=== PATIENT | male | born 1985 | race African-American/Black ===

== ENCOUNTER 2017-03-22 18:30 | Emergency (ER) | payer SELFPAY ==
[~2017-03-22] VITALS: Ht 195.6 cm; Wt 110.0 kg
[2017-03-22 18:35] VITALS: BP 141/100; PULSE 111; RESP 16; TEMP 98.4; O2SAT 99
[2017-03-22] MEDS ORDERED: TETANUS/DIPHTHERIA TOXOID ADULT 0.5 ML VIAL IM ONE (18:45)
[2017-03-22] MEDS ORDERED: BUPIVACAINE HCL PF 0.5% 10 ML VIAL INFIL ONE (18:45)
[2017-03-22] MEDS ORDERED: LIDOCAINE HCL 1% 50 ML VIAL INFIL ONE (18:45)
--- NOTE | 2017-03-22 18:45 | PD ---
HPI Chief Complaint: Laceration/Skin Injury Time Seen by Provider: 18:42 Travel History International Travel<30 days: No Contact w/Intl Traveler<30days: No Traveled to known affect area: No History of Present Illness HPI 32-year-old male presents emergency Department with complaint of right hand fifth finger laceration to the palmar aspect that occurred today from a knife while cutting meat. Unknown tetanus status. Says he can't bend his finger. His not taking any medications to alleviate his symptoms. Has applied pressure and a bandage to control bleeding. Rates pain 7/10. Describes it as throbbing. No known relieving or aggravating factors. No known allergies. No primary care provider. Has no other medical complaints. No other modifying factors or associated signs and symptoms. PFSH Social History Tobacco Use: No Allergies-Medications (Allergen,Severity, Reaction): Coded Allergies: No Known Allergies (Unverified , 03/22/17) Reported Meds & Prescriptions Reported Meds & Active Scripts Active [place] (Hydrocodone-Acetaminophen) 5 Mg-325 Mg Tab 1 Tab PO Q6H PRN Ibuprofen 800 Mg Tab 800 Mg PO Q8H PRN Keflex (Cephalexin) 500 Mg Cap 500 Mg PO Q6H 5 Days Review of Systems Except as stated in HPI: all other systems reviewed are Neg Physical Exam Narrative GENERAL: Well-nourished, well-developed black male patient, in no acute distress SKIN: Warm and dry. Palmar aspect of right fifth finger with approximately 1.5 cm laceration just over the PIP joint; patient is unable to flex the finger and there is no opposition; sensory intact. HEAD: Atraumatic. Normocephalic. EYES: Pupils equal and round. No scleral icterus. No injection or drainage. ENT: Mucosa pink and moist. Airway patent. NECK: Trachea midline. CARDIOVASCULAR: Regular rate. RESPIRATORY: No accessory muscle use. GASTROINTESTINAL: Flat. MUSCULOSKELETAL: No obvious deformities. No clubbing. No cyanosis. No edema. NEUROLOGICAL: Awake and alert. Oriented 3. No obvious cranial nerve deficits. Motor grossly within normal limits. Normal speech. PSYCHIATRIC: Appropriate mood and affect; insight and judgment normal. Data Data Last Documented VS Vital Signs Date Time Temp Pulse Resp B/P (MAP) Pulse Ox O2 Delivery O2 Flow Rate FiO2 03/22/17 19:05 20 03/22/17 18:35 98.4 111 141/100 (114) 99 Room Air Orders Orders Tetanus/Diphtheria Tox Adult (Tetanus/Di (03/22/17 18:45) Bupivacaine Pf 0.5% Inj (Marcaine Pf 0.5 (03/22/17 18:45) Lidocaine 1% Inj (50 Ml) (Xylocaine 1% I (03/22/17 18:45) Finger ([id number]) (03/22/17 ) Mandatory Outpatient Referral (03/22/17 19:04) Lidocaine 1% Inj (Xylocaine 1% Inj) (03/22/17 19:15) Splint Or Brace Apply/Monitor (03/22/17 19:10) Ed Discharge Order (03/22/17 19:34) Fiberglass Splint Forearm Adul (03/22/17 ) MDM Medical Decision Making Medical Screen Exam Complete: Yes Emergency Medical Condition: Yes Medical Record Reviewed: Yes Differential Diagnosis Laceration, contusion, abrasion Narrative Course 32-year-old male with right fifth finger laceration. Tetanus ordered. 1900: Adeline alcaraz DNP assumed patient care at this time. See her note for final patient disposition and laceration repair. Scripts Hydrocodone-Acetaminophen ([place]) 5 Mg-325 Mg Tab 1 TAB PO Q6H Y for PAIN GREATER THAN 6, #12 TAB 0 Refills Prov: Adeline Hawkins 03/22/17 Ibuprofen (Ibuprofen) 800 Mg Tab 800 MG PO Q8H Y for Pain/Inflammation, #30 TAB 0 Refills Prov: Adeline Hawkins 03/22/17 Cephalexin (Keflex) 500 Mg Cap 500 MG PO Q6H for Infection for 5 Days, #20 CAP 0 Refills Prov: Adeline Hawkins 03/22/17 Keke Bah Mar 22, 2017 18:45
[2017-03-22] MEDS ORDERED: LIDOCAINE HCL 1% 20 ML VIAL INFIL ONE (19:15)
--- NOTE | 2017-03-22 19:21 | RADRPT ---
EXAM DATE/TIME: 03/22/2017 19:04 [facility] COMPARISON: No previous studies available for comparison. INDICATIONS : Laceration to fifth digit. MEDICAL HISTORY : None. SURGICAL HISTORY : None. ENCOUNTER: Initial ACUITY: 1 day PAIN SCORE: 5/10 LOCATION: Right upper extremity hand FINDINGS: Examination of the fifth digit of the right hand demonstrates no evidence of fracture or dislocation. No radiopaque foreign bodies are seen. The soft tissues are intact. CONCLUSION: Intact right little finger. No radiopaque foreign body. Clinton Bird MD on March 22, 2017 at 19:18 Board Certified Radiologist. This report was verified electronically.
[2017-03-22] MEDS ORDERED: IBUP1TAB7 PO (19:41)
[2017-03-22] MEDS ORDERED: CEPH-460 PO (19:41)
[2017-03-22] MEDS ORDERED: NORC5TAB PO (19:41)
--- NOTE | 2017-03-22 19:42 | PD ---
Physical Exam Time Seen by Provider: 19:35 Narrative Please refer to previous providers documentation for details surrounding the patient's current visit. Data Data Last Documented VS Vital Signs Date Time Temp Pulse Resp B/P (MAP) Pulse Ox O2 Delivery O2 Flow Rate FiO2 03/22/17 19:05 20 03/22/17 18:35 98.4 111 141/100 (114) 99 Room Air Orders Orders Tetanus/Diphtheria Tox Adult (Tetanus/Di (03/22/17 18:45) Bupivacaine Pf 0.5% Inj (Marcaine Pf 0.5 (03/22/17 18:45) Lidocaine 1% Inj (50 Ml) (Xylocaine 1% I (03/22/17 18:45) Finger ([id number]) (03/22/17 ) Mandatory Outpatient Referral (03/22/17 19:04) Lidocaine 1% Inj (Xylocaine 1% Inj) (03/22/17 19:15) Splint Or Brace Apply/Monitor (03/22/17 19:10) Ed Discharge Order (03/22/17 19:34) [facility] Medical Record Reviewed: Yes Supervised Visit with RAFAEL: No Narrative Course Patient is signed out to me with laceration to the lower aspect of the right fifth digit just proximal to the PIP. Patient is unable to flex the digit. X- ray confirms no bony involvement and no foreign body. I spoke with Dr. Muñiz, hand surgeon rn utilization management um. Laceration will be approximated and patient will be placed in a splint. Patient is instructed on care. A mandatory referral has been placed. He agrees to return immediately with any acute worsening of symptoms. Procedures Procedure Narrative LACERATION LOCATION: right 5th digit LENGTH:2 cm NUMBER OF STITCHES/ROSALINDA: 5 sutures REPAIR: The area of the laceration was prepped with Betadine and sterilely draped. The laceration was infiltrated with 1% lidocaine without epinephrine. The wound was copiously irrigated and explored without evidence of foreign body , tendon injury or neurovascular injury. The wound was closed using 4-0 Prolene suture. This was a single layer repair. A sterile dressing was applied. The patient was advised to keep the dressing clean and dry. Patient tolerated the procedure well. Diagnosis Primary Impression: Finger laceration involving tendon Qualified Codes: S61.219A - Laceration without foreign body of unspecified finger without damage to nail, initial encounter; S66.929A - Laceration of unspecified muscle, fascia and tendon at wrist and hand level, unspecified hand , initial encounter Referrals: Anthony Muñiz III, MD Primary Care Physician Patient Instructions: Finger Laceration (ED), General Instructions, Tendon Laceration (ED) Departure Forms: Tests/Procedures, Work Release Special Instructions: Patient is unable to utilize right hand until cleared by hand surgeon Additional Instruction: Do not remove your splint Do not get wet Elevate to reduce pain and swelling Follow-up with Dr. Muñiz-a mandatory referral has been placed. If you are not contacted by the end of this week please contact our ER @ [phone] and ask for the individual in charge of mandatory referrals Return immediately to [facility] department with any acute worsening symptoms Med/Other Pt SpecificInfo: Prescription(s) given Scripts Hydrocodone-Acetaminophen ([place]) 5 Mg-325 Mg Tab 1 TAB PO Q6H Y for PAIN GREATER THAN 6, #12 TAB 0 Refills Prov: Adeline Hawkins 03/22/17 Ibuprofen (Ibuprofen) 800 Mg Tab 800 MG PO Q8H Y for Pain/Inflammation, #30 TAB 0 Refills Prov: Adeline Hawkins 03/22/17 Cephalexin (Keflex) 500 Mg Cap 500 MG PO Q6H for Infection for 5 Days, #20 CAP 0 Refills Prov: Adeline Hawkins 03/22/17 Disposition: 01 DISCHARGE HOME Condition: Stable Adeline Hawkins Mar 22, 2017 19:42
== END 2017-03-22 20:05 | disposition home or self-care (01) ==
LOC: NEPD 18:30
DX: S61.216A Laceration without foreign body of right little finger without damage to nail, initial encounter (principal); W26.0XXA Contact with knife, initial encounter; Y93.G1 Activity, food preparation and clean up; Z23 Encounter for immunization
CPT/HCPCS: 12001; 73140; 90471; 90714

== ENCOUNTER → 2017-04-03 | Day surgery (SDC) | payer SELFPAY ==
[~2017-04-03] MED LIST: ACETAMINOPHEN 1000 MG/100 ML 100 ML IV ONE; BUPIVACAINE HCL PF 0.5% 10 ML VIAL ONE; CEPH-460 PO; CHLORHEXIDINE GLUCONATE 2 % 1 PACK (2 CLOTHS) TOPICAL PRN; IBUP1TAB7 PO; LACTATED RINGER'S 1000 ML IV PRN; METOPROLOL TARTRATE 25 MG TAB PO PRN; NEOMYCIN/POLYMYXIN 1 ML G.U. IRRIGANT ONE; NORC5TAB PO; POVIDONE IODINE 5% (ANTISEPSIS KIT) 4 APPLICATIONS EACH NARE PRN; SODIUM CHLORID 0.9% 500 ML IV PRN; ceFAZolin 2 GM PREMIX 50 ML IV SCH
[2017-04-03 11:08] VITALS: BP 143/95; PULSE 80; RESP 16; TEMP 98.6; O2SAT 98
== END | disposition home or self-care (01) ==
LOC: PHSDC 10:28
PROVIDERS: ATTEND Orthopaedic Surgery Hand Surgery
DX: S66.821A Laceration of other specified muscles, fascia and tendons at wrist and hand level, right hand, initial encounter (principal); Z53.9 Procedure and treatment not carried out, unspecified reason
CPT/HCPCS: 99211; J0131; G0463

== ENCOUNTER → 2017-04-09 | Day surgery (SDC) | payer SELFPAY ==
[~2017-04-09] VITALS: Ht 195.6 cm; Wt 109.0 kg
[~2017-04-09] MED LIST changes: -ACETAMINOPHEN 1000 MG/100 ML 100 ML IV ONE; -BUPIVACAINE HCL PF 0.5% 10 ML VIAL ONE; +BUPIVACAINE HCL PF 0.5% 30 ML VIAL ONE; +HYDR-3288 PO; +HYDROmorphone HCL PF 2 MG/ML VIAL ONE; -IBUP1TAB7 PO; +LACTATED RINGER'S 1000 ML INJ 1,000 ML ONE; +LIDOCAINE HCL 2% 50 ML VIAL ONE; +MIDAZOLAM HCL 2 MG/2 ML VIAL ONE; +MORPHINE SULFATE 4 MG/ML INJ ONE; +ceFAZolin 2 GM PREMIX 50 ML ONE
[2017-04-09 12:55] VITALS: TEMP 98
[2017-04-09 13:40] VITALS: BP 157/93; PULSE 81; RESP 16; O2SAT 100
--- NOTE | 2017-04-10 08:10 | MP ---
cc: ANTHONY MUÑIZ III, M.D. DATE OF OPERATION 04/09/2017 PREOPERATIVE DIAGNOSIS Right fifth finger laceration with flexor tendon and digital nerve injury. PROCEDURE 1. Right fifth finger exploration. 2. Right fifth flexor digitorum profundus repair, delayed. 3. Right fifth finger ulnar digital nerve repair. SURGEON Anthony Muñiz III, MD PROCEDURE The patient was brought to the operating room and placed supine on the operating table. After the correct site and side of surgery were verified by members of each team in the room multiple times including the patient and myself and after adequate preoperative markings and preoperative written consent was verified by everyone, and after adequate preoperative time-out and general anesthesia had been achieved the right upper extremity was prepped and draped in the traditional sterile surgical fashion. The existing sutures were removed. A 50/50 mixture of 2% plain lidocaine and 0.5% plain Marcaine was infiltrated in the skin and subcutaneous tissues. At the base of the fifth finger in the end palm, the wound was exsanguinated with an Kyle wrap, highly placed, well-padded axillary tourniquet inflated to 200 mmHg for proximally the 83 minutes. Mid-axial incisions ulnarly incorporating the existing laceration were made. Flaps were elevated. The flexor sheath was identified and was found to have been violated and there were no flexor tendons visible. Exploration revealed a 1.5 cm stump of FDP attached distally. Exploration down to the A1 chris revealed healing and scarred FDP tendon. The proximal and distal ends of the ulnar digital nerve were identified and cleaned for later repair. The A2 chris was intact. The A4 chris was scarred and the FDP tendon was then repaired using 3-0 Prolene sutures on double-ended tapered needles in end-to-end fashion. It was reinforced for total of 4 to 6 core strand repair using the 3-0 Prolene as there is little room left in the tendon. The A4 chris was repaired and reinforced with local tissues using interrupted 3-0 Vicryl sutures. The FDP tendon repair took a lot of extra time, dissection and was in no man's land, increasing the level of complexity significantly. The ulnar digital nerve was then repaired in an end-to-end fashion using multiple interrupted 8-0 nylon sutures in the perineural tissue. There were no other anatomic abnormalities identified. The ulnar digital artery was injured in the initial injury and was all atrophied and retracted. The axillary tourniquet was released. The hand and all fingers including the small finger became immediately soft, pink and warm and had brisk capillary refill of less 2 seconds. The skin edges were then reapproximated using multiple interrupted and running 4-0 chromic sutures. Additional local anesthetic was injected proximally for postoperative pain relief. The hand and arm were thoroughly cleansed and dried. Betadine and Adaptic dressings were applied atop of the wound, followed by a bulky, well-padded, well molded dorsal blocking splint keeping all the fingers flexed. The patient was awakened from anesthesia and transported to the Post-Anesthesia Care Unit awake and in stable condition at the end of the case. Sponge, needle, instrument counts were correct at the end of the case as reported by the nurses in the room. MD ERLINDA Collins III/ADEOLA /12:59 PM /7:39 AM
== END | disposition home or self-care (01) ==
LOC: PHSDC 10:04
PROVIDERS: ATTEND Orthopaedic Surgery Hand Surgery
DX: S66.821A Laceration of other specified muscles, fascia and tendons at wrist and hand level, right hand, initial encounter (principal); S64.496A Injury of digital nerve of right little finger, initial encounter; W26.0XXA Contact with knife, initial encounter; Y93.G1 Activity, food preparation and clean up
CPT/HCPCS: 01810; 26356; 64831; J0690; J1170; J2250; J2270; J3010; J7120